=== PATIENT | female | born 1990 | race Caucasian/White ===

== ENCOUNTER 2018-07-07 22:48 | Inpatient (IN) | payer BC ==
[~2018-07-07] VITALS: Ht 157.5 cm; Wt 61.9 kg
[2018-07-07] MEDS ORDERED: ASPIRIN 81 MG TAB.CHEW PO ONE (23:00)
--- NOTE | 2018-07-07 23:10 | NUR ---
Pt ambulates to ER with c/o chest pain that started this morning. Pt appears tearful, anxious. Pt states she feels short of breath. SA02 100% room air. Pt states she was admitted at [facility] 1 month ago for similar c/o & had troponin level 10.4. 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 Pt also states she was on a Holter monitor a couple days ago. No N/V/D. Pt placed on classroom monitor, showing NSR. Will continue to monitor. AAOX4. Ambulatory.
[2018-07-07 23:14] LABS: BASOPHILS # (AUTO) 0.1 K/uL (0.0-8.0); BASOPHILS % (AUTO) 1.8 % (0.0-2.0); EOSINOPHILS # (AUTO) 0.2 K/uL (0.0-0.7); HEMATOCRIT 39.9 % (31.2-41.9); HEMOGLOBIN 13.3 g/dL (10.9-14.3); LYMPHOCYTES # (AUTO) 1.7 K/uL (20.0-40.0); MEAN CORPUSCULAR HEMOGLOBIN 29.9 uug (24.7-32.8); MEAN CORPUSCULAR HGB CONC 33 g/dL (32.3-35.6); MEAN CORPUSCULAR VOLUME 89.8 fL (75.5-95.3); MONOCYTES # (AUTO) 0.4 K/uL (2.0-10.0); MONOCYTES % (AUTO) 11.2 % (0.0-11.0); NEUTROPHILS # (AUTO) 1.1 K/uL (1.8-8.9); PLATELET COUNT (AUTO) 197 K/uL (179-408); RED BLOOD CELL COUNT(AUTO) 4.44 MIL/uL (3.63-4.92); WHITE BLOOD COUNT (AUTO) 3.4 K/uL (3.8-11.8)
[2018-07-07 23:21] LABS: POTASSIUM 3.9 mmol/L (3.5-5.1)
[2018-07-07] MEDS ORDERED: ASPIRIN 325 MG TABLET ONE (23:22)
[2018-07-08] MEDS ORDERED: COLCHICINE 0.6 MG TABLET PO ONE (00:15)
[2018-07-08] MEDS ORDERED: COLCHICINE 0.6 MG TABLET ONE (00:18)
--- NOTE | 2018-07-08 00:18 | NUR ---
Paged [facility] for panel call. Pending call back from Stephanie Cee NP.
--- NOTE | 2018-07-08 00:19 | NUR ---
Dr. Larissa HERMAN MD speaking to Stephanie Cee NP.
[2018-07-08] MEDS ORDERED: BYSTOLIC PO (00:21)
--- NOTE | 2018-07-08 00:30 | NUR ---
Pt. admitted to Telemetry, under care of Stephanie Cee NP. Diagnosis: Chest Pain. Belongs List completed. MRSA swab done.
[2018-07-08 01:00] VITALS: BP 95/54
--- NOTE | 2018-07-08 01:08 | NUR ---
Admitted a 28 years old female with diagnosis of Chest pain. AAOx4. In no acute distress. Denies any chest pain during admission. Denies any SOB. IV site on right AC intact and patent. Sinus tila on tele at 48/min. Routine admission care done. Plan of care initiated. Safety measure initiated and call morales within reach.
[2018-07-08] MEDS ORDERED: ZOLPIDEM 5 MG TABLET PO PRN (02:45)
[2018-07-08] MEDS ORDERED: ACETAMINOPHEN 325 MG TABLET PO PRN (02:45)
[2018-07-08] MEDS ORDERED: HYDROCODONE/APAP 5-325MG TABLET PO PRN (02:45)
[2018-07-08] MEDS ORDERED: ONDANSETRON 4 MG/2 ML VIAL IV PRN (02:45)
[2018-07-08] MEDS ORDERED: MAGNESIUM HYDROXIDE 30 ML LIQUID UDC PO PRN ×2 (02:45→07:45)
[2018-07-08] MEDS ORDERED: Z GUARD REMEDY PASTE 57 GM TUBE TOP PRN (02:45)
[2018-07-08 04:54] VITALS: BP 95/41
--- NOTE | 2018-07-08 06:26 | NUR ---
AAOx4. Sleeping in bed at this time. In no acute distress. Denies any chest pain or SOB. IV site on right AC intact and patent. Sinus tila on tele at 51/min. Needs assessed and attended to. Safety measure maintained and call morales within reach.
[2018-07-08 07:00] LABS: BASOPHILS # (AUTO) 0.1 K/uL (0.0-8.0); BASOPHILS % (AUTO) 2.8 % (0.0-2.0); EOSINOPHILS # (AUTO) 0.2 K/uL (0.0-0.7); EOSINOPHILS % (AUTO) 7.3 % (0.0-7.0); HEMATOCRIT 39.4 % (31.2-41.9); HEMOGLOBIN 13.2 g/dL (10.9-14.3); LYMPHOCYTES # (AUTO) 1.4 K/uL (20.0-40.0); LYMPHOCYTES % (AUTO) 45.3 % (20.5-51.5); MEAN CORPUSCULAR HEMOGLOBIN 29.9 uug (24.7-32.8); MEAN CORPUSCULAR HGB CONC 33 g/dL (32.3-35.6); MEAN CORPUSCULAR VOLUME 89.5 fL (75.5-95.3); MONOCYTES # (AUTO) 0.4 K/uL (2.0-10.0); NEUTROPHILS % (AUTO) 32.6 % (38.5-71.5); PLATELET COUNT (AUTO) 190 K/uL (179-408)
[2018-07-08 07:15] LABS: CREATININE 0.9 mg/dL (0.6-1.3); MAGNESIUM 2.5 mg/dL (1.8-2.4); PHOSPHOROUS 5.2 mg/dL (2.5-4.9)
--- NOTE | 2018-07-08 07:30 | NUR ---
Awake, alert, oriented x 4. Denies chest pain at this time. Tele SB
[2018-07-08] MEDS ORDERED: ASPIRIN 81 MG TAB.CHEW PO SCH (09:00)
[2018-07-08] MEDS ORDERED: COLCHICINE 0.6 MG TABLET PO SCH (09:00)
[2018-07-08 11:00] VITALS: BP 102/56
--- NOTE | 2018-07-08 14:05 | NUR ---
Seen by Dr. Graf, cleared for discharge. Tele removed. Saline lock removed. DC instruction given to patient, verbalized understanding. Went home per ambulatory in fair condition, not in distress, afebrile.
--- NOTE | 2018-07-09 01:30 | NUR ---
INFORMATION SENT: FACESHEET,CONSULTATION,H&P,DISCHARGE SUMMARY,UR 07/08 INSURANCE NAME: [facility] [place] FAX NUMBER: [phone] FAX SENT
== END 2018-07-08 14:10 | disposition home or self-care (01) | DRG 315 ==
LOC: ER 22:49 → TELE3 07-08 00:36
PROVIDERS: ADMIT Nurse Practitioner Acute Care
DX: I51.4 Myocarditis, unspecified (principal); I31.9 Disease of pericardium, unspecified; Z86.19 Personal history of other infectious and parasitic diseases; R94.31 Abnormal electrocardiogram [ECG] [EKG]; D70.9 Neutropenia, unspecified
CPT/HCPCS: 36415; 70030-TC; 71045; 83735; 84100; 85025; 85651; 86060; 93005; A4663; G0378